=== PATIENT | female | born 1975 | race Asian ===

== ENCOUNTER 2021-10-11 18:08 | Outpatient (REF) | payer MEDICAID, SELFPAY ==
[2021-10-11 16:00] LABS: HCT 36.1 % (36.0-46.0); HGB 12.4 g/dL (11.2-15.7); MCH 32.6 pg (27.0-33.0); MCHC 34.3 % (32.0-36.0); MCV 95 fL (80-95); MPV 10.7 fL (8.0-11.0); Platelet Count 300 10^3/uL (130-400); RDW-SD 38.2 fL; WBC 3.31 10^3/uL (4.4-10.8)
[2021-10-11 16:28] LABS: Hemoglobin A1C 5.5 % (<5.7)
[2021-10-11 16:39] LABS: ALT 29 U/L (14-59); AST 46 U/L (15-37); Alkaline Phosphatase 49 U/L (46-116); Anion Gap 8.1 mmol/L (3-11); BUN 16 mg/dL (7-18); Bilirubin, Total 0.5 mg/dL (0.2-1.0); CO2 25.9 mmol/L (21.0-32.0); CREATININE 0.8 mg/dL (0.55-1.02); Calcium 8.2 mg/dL (8.5-10.1); Calculated LDL 80 mg/dL (<100); Chloride 106 mmol/L (98-107); Cholesterol 160 mg/dL (<200); Glucose 91 mg/dL (74-106); HDL Cholesterol 68 mg/dL (40-60); Potassium 4.3 mmol/L (3.5-5.1); Sodium 140 mmol/L (136-145); TSH 2.18 uIU/mL (0.36-3.74); Total Protein 6.8 g/dL (6.4-8.2); Triglyceride 64 mg/dL (<150)
== END 2021-10-11 18:09 | disposition home or self-care (01) ==
LOC: NCHCN 18:08
PROVIDERS: PCP Internal Medicine; Visit Provider Nurse Practitioner Family
DX: E66.3 Overweight (principal); Z13.1 Encounter for screening for diabetes mellitus; Z13.220 Encounter for screening for lipoid disorders; Z13.29 Encounter for screening for other suspected endocrine disorder; Z00.00 Encounter for general adult medical examination without abnormal findings
CPT/HCPCS: 80053; 80061; 85027; 83036; 84443

== ENCOUNTER 2021-10-18 09:57 | Outpatient (REF) | payer MEDICAID, SELFPAY ==
--- NOTE | 2021-10-18 09:30 | PAPFT_PTH ---
PATIENT: Tasha Fields LOC: [facility]#:[id number] AGE/SX: 46/F ROOM: RE10/18/[address]: Kenia Owens : 1975 BED: DIS: 10/18/2021 SPEC #: [id number] RECD: 10/18/21 18:36 STATUS: ARNOLD REMarcelo #: [id number] DEANDRE: 10/18/21 09:[address]: Kenia Duenas DEPT: [facility] Cytology RECD BY: Luanne Laguna ENTERED: 10/18/21 18:36 SP TYPE: PAPFT OTHR DR: Emeka Griffin Tissues: 1 - CX/ENDOCX FOR PAP SMEARS Procedures: PAP THIN PREP/[facility] Screening HPV DNA PROBE Comments: [id number]
== END 2021-10-18 09:58 | disposition home or self-care (01) ==
LOC: NCHCN 09:57
PROVIDERS: PCP Internal Medicine; Visit Provider Nurse Practitioner Family
DX: Z12.4 Encounter for screening for malignant neoplasm of cervix (principal); Z11.51 Encounter for screening for human papillomavirus (HPV)
CPT/HCPCS: 88142; 87624

== ENCOUNTER 2021-11-29 15:04 | Outpatient (REF) | payer MEDICAID, SELFPAY ==
[2021-11-29 15:48] LABS: HCT 37.5 % (36.0-46.0); HGB 12.9 g/dL (11.2-15.7); MCH 31.9 pg (27.0-33.0); MCHC 34.4 % (32.0-36.0); MCV 93 fL (80-95); MPV 10.8 fL (8.0-11.0); Platelet Count 278 10^3/uL (130-400); RBC 4.04 10^6/uL (3.93-5.22); RDW-SD 37.7 fL; WBC 3.77 10^3/uL (4.4-10.8)
[2021-11-29 16:08] LABS: ALT 40 U/L (14-59); AST 24 U/L (15-37); Albumin 3.8 g/dL (3.4-5.0); Alkaline Phosphatase 39 U/L (46-116); Anion Gap 5.7 mmol/L (3-11); BUN 20 mg/dL (7-18); Bilirubin, Total 0.6 mg/dL (0.2-1.0); CO2 26.3 mmol/L (21.0-32.0); CREATININE 0.7 mg/dL (0.55-1.02); Calcium 8.3 mg/dL (8.5-10.1); Chloride 104 mmol/L (98-107); Glucose 97 mg/dL (74-106); Sodium 136 mmol/L (136-145); Total Protein 7.2 g/dL (6.4-8.2)
[2021-11-29 16:26] LABS: Vitamin D 25 Total 21.9 ng/mL (30-100)
[2021-11-30 10:49] LABS: Parathyroid Hormone,Intact 36 pg/mL (19-88)
== END 2021-11-29 15:05 | disposition home or self-care (01) ==
LOC: NCHCN 15:04
PROVIDERS: PCP Internal Medicine; Visit Provider Nurse Practitioner Family
DX: D72.819 Decreased white blood cell count, unspecified (principal); E83.51 Hypocalcemia
CPT/HCPCS: 80053; 82306; 85027; 83970

== ENCOUNTER 2022-02-26 14:37 | Outpatient (REF) | payer MEDICAID, SELFPAY ==
[2022-02-26 15:11] LABS: HCT 36.7 % (36.0-46.0); HGB 12.4 g/dL (11.2-15.7); MCH 32.1 pg (27.0-33.0); MCHC 33.8 % (32.0-36.0); MCV 95 fL (80-95); Platelet Count 324 10^3/uL (130-400); RBC 3.86 10^6/uL (3.93-5.22); RDW-SD 38.5 fL; WBC 3.46 10^3/uL (4.4-10.8)
[2022-02-26 15:32] LABS: ALT 60 U/L (14-59); AST 40 U/L (15-37); Albumin 3.9 g/dL (3.4-5.0); Alkaline Phosphatase 48 U/L (46-116); Anion Gap 4.5 mmol/L (3-11); BUN 18 mg/dL (7-18); Bilirubin, Total 0.6 mg/dL (0.2-1.0); CO2 28.5 mmol/L (21.0-32.0); CREATININE 0.8 mg/dL (0.55-1.02); Calcium 8.7 mg/dL (8.5-10.1); Chloride 104 mmol/L (98-107); Estimated GFR 92.54 (mL/min/1.73m2); Glucose 96 mg/dL (74-106); Sodium 137 mmol/L (136-145); Total Protein 7.5 g/dL (6.4-8.2)
[2022-02-26 15:45] LABS: Vitamin D 25 Total 47.2 ng/mL (30-100)
== END 2022-02-26 14:38 | disposition home or self-care (01) ==
LOC: NCHCN 14:37
PROVIDERS: PCP Internal Medicine; Visit Provider Nurse Practitioner Family
DX: D72.819 Decreased white blood cell count, unspecified (principal); E83.51 Hypocalcemia; E55.9 Vitamin D deficiency, unspecified
CPT/HCPCS: 80053; 82306; 85027

== ENCOUNTER 2022-03-06 22:31 | Outpatient (REF) | payer MEDICAID, SELFPAY ==
[2022-03-06 21:06] LABS: Abs Immature Grans 0.01 10^3/uL (0.0-0.06); Absolute Basophil Count 0.03 10^3/uL (0.0-0.2); Absolute Eosinophil Count 0.27 10^3/uL (0.0-0.7); Absolute Lymphocyte Count 1.23 10^3/uL (1.2-3.4); Absolute Monocyte Count 0.37 10^3/uL (0.1-0.8); Absolute Neutrophil Count 1.69 10^3/uL (1.2-6.7); Basophils % 0.8; Eosinophils % 7.5; HCT 35.8 % (36.0-46.0); HGB 12.4 g/dL (11.2-15.7); Immature Grans % 0.3; Lymphocytes % 34.2; MCHC 34.6 % (32.0-36.0); MCV 95 fL (80-95); MPV 10.3 fL (8.0-11.0); Monocytes % 10.3; Neutrophils % 46.9; Platelet Count 339 10^3/uL (130-400); RBC 3.76 10^6/uL (3.93-5.22); RDW-SD 38.7 fL
[2022-03-06 21:32] LABS: Ferritin 304 ng/mL (8-252)
[2022-03-06 22:04] LABS: Iron 142 ug/dL (50-170); Total Iron Binding Capacity 255 ug/dL (250-450); Transferrin Sat 56 % (15-50)
[2022-03-08 09:11] LABS: HBs Antibody, Quant >1000.0 mIU/mL (See Note); Hepatitis B Surface Ab Positive (See Note)
[2022-03-08 10:47] LABS: Hepatitis A Antibody IgM Negative (Negative); Hepatitis B Core Antibody Positive (Negative); Hepatitis B surface Ag Negative (Negative); Hepatitis C Ab w Rflx HCV PCR Negative (Negative)
[2022-03-09 16:31] LABS: HBc IgM Ab, S Negative (Negative)
== END 2022-03-06 22:32 | disposition home or self-care (01) ==
LOC: NCHCN 22:31
PROVIDERS: PCP Internal Medicine; Visit Provider Nurse Practitioner Family
DX: R79.89 Other specified abnormal findings of blood chemistry (principal); D72.819 Decreased white blood cell count, unspecified
CPT/HCPCS: 86704; 86706; 86709; 86803; 87340; 82728; 83540; 83550; 85025; 86705

== ENCOUNTER 2022-04-01 22:03 | Outpatient (REF) | payer MEDICAID, SELFPAY ==
[2022-04-01 21:50] LABS: ALT 59 U/L (14-59); AST 31 U/L (15-37); Alkaline Phosphatase 47 U/L (46-116); Bilirubin, Direct 0.2 mg/dL (0.0-0.2); Bilirubin, Total 0.8 mg/dL (0.2-1.0)
[2022-04-03 16:07] LABS: Smooth Muscle Ab Screen Negative (Negative)
[2022-04-03 16:30] LABS: ANA Interpretation Negative (Negative)
[2022-04-08 00:18] LABS: Result Summary NEGATIVE; Specimen WB Whole Blood
== END 2022-04-01 22:04 | disposition home or self-care (01) ==
LOC: NCHCN 22:03
PROVIDERS: PCP Internal Medicine; Visit Provider Nurse Practitioner Family
DX: R79.89 Other specified abnormal findings of blood chemistry (principal)
CPT/HCPCS: 80076; 81256; 86038; 86255

== ENCOUNTER 2022-10-10 09:50 | Outpatient (REF) | payer MEDICAID, SELFPAY ==
[2022-10-10 15:01] LABS: ALT 27 U/L (14-59); AST 21 U/L (15-37); Albumin 3.6 g/dL (3.4-5.0); Alkaline Phosphatase 38 U/L (46-116); Bilirubin, Direct 0.2 mg/dL (0.0-0.2); Bilirubin, Total 0.9 mg/dL (0.2-1.0); Total Protein 6.8 g/dL (6.4-8.2)
== END 2022-10-10 09:51 | disposition home or self-care (01) ==
LOC: NCHCN 09:50
PROVIDERS: PCP Internal Medicine; Visit Provider Nurse Practitioner Family
DX: R79.89 Other specified abnormal findings of blood chemistry (principal)
CPT/HCPCS: 80076

== ENCOUNTER 2023-05-20 12:42 | Outpatient (REF) | payer MEDICAID, SELFPAY ==
[2023-05-20 14:31] LABS: HCT 36.8 % (36.0-46.0); HGB 12.9 g/dL (11.2-15.7); MCH 32.5 pg (27.0-33.0); MCHC 35.1 % (32.0-36.0); MCV 93 fL (80-95); MPV 10.1 fL (8.0-11.0); Platelet Count 322 10^3/uL (130-400); RBC 3.97 10^6/uL (3.93-5.22); RDW-SD 37.6 fL; WBC 3.16 10^3/uL (4.4-10.8)
[2023-05-20 15:06] LABS: ALT 35 U/L (14-59); AST 25 U/L (15-37); Albumin 3.6 g/dL (3.4-5.0); Alkaline Phosphatase 38 U/L (46-116); BUN 18 mg/dL (7-18); Bilirubin, Total 0.7 mg/dL (0.2-1.0); Calcium 8.6 mg/dL (8.5-10.1); Chloride 105 mmol/L (98-107); Glucose 98 mg/dL (74-106); Potassium 3.9 mmol/L (3.5-5.1); Sodium 140 mmol/L (136-145); TSH 1.65 uIU/mL (0.36-3.74); Total Protein 6.9 g/dL (6.4-8.2)
[2023-05-20 15:22] LABS: CREATININE 0.8 mg/dL (0.55-1.02); Estimated GFR 91.97 (mL/min/1.73m2)
[2023-05-20 15:54] LABS: Hemoglobin A1C 5.3 % (<5.7)
[2023-05-20 16:18] LABS: Vitamin D 25 Total 24.9 ng/mL (30-100)
== END 2023-05-20 12:43 | disposition home or self-care (01) ==
LOC: NCHCN 12:42
PROVIDERS: PCP Internal Medicine; Visit Provider Nurse Practitioner Family
DX: D72.819 Decreased white blood cell count, unspecified (principal); E55.9 Vitamin D deficiency, unspecified; R74.01 Elevation of levels of liver transaminase levels; E04.1 Nontoxic single thyroid nodule; R79.89 Other specified abnormal findings of blood chemistry
CPT/HCPCS: 80053; 82306; 85027; 83036; 84443

== ENCOUNTER 2024-05-25 14:11 | Outpatient (REF) | payer MEDICAID, SELFPAY ==
[2024-05-25 15:20] LABS: HCT 36.5 % (36.0-46.0); HGB 12.6 g/dL (11.2-15.7); MCHC 34.5 % (32.0-36.0); MCV 93 fL (80-95); MPV 10.5 fL (8.0-11.0); Platelet Count 340 10^3/uL (130-400); RBC 3.94 10^6/uL (3.93-5.22); RDW-SD 37.8 fL; WBC 3.23 10^3/uL (4.4-10.8)
[2024-05-25 15:37] LABS: Hemoglobin A1C 5.6 % (<5.7)
[2024-05-25 16:05] LABS: ALT 23 U/L (14-59); AST 26 U/L (15-37); Albumin 3.8 g/dL (3.4-5.0); Alkaline Phosphatase 36 U/L (46-116); Anion Gap 5.6 mmol/L (3-11); BUN 16 mg/dL (7-18); Bilirubin, Total 0.77 mg/dL (0.2-1.0); CO2 27.4 mmol/L (21.0-32.0); CREATININE 0.8 mg/dL (0.55-1.02); Calcium 8.7 mg/dL (8.5-10.1); Calculated LDL 97 mg/dL (<100); Chloride 105 mmol/L (98-107); Cholesterol 182 mg/dL (<200); Glucose 92 mg/dL (74-106); HDL Cholesterol 77 mg/dL (40-60); Sodium 138 mmol/L (136-145); TSH 1.69 uIU/mL (0.36-3.74); Total Protein 7.2 g/dL (6.4-8.2); Triglyceride 44 mg/dL (<150); Vitamin D 25 Total 36.1 ng/mL (30-100)
[2024-05-28 13:51] LABS: Helicobacter pylori Ag, Feces Negative (Negative)
== END 2024-05-25 14:12 | disposition home or self-care (01) ==
LOC: NCHCN 14:11
PROVIDERS: PCP Internal Medicine; Visit Provider Nurse Practitioner Family
DX: K21.9 Gastro-esophageal reflux disease without esophagitis (principal); E04.1 Nontoxic single thyroid nodule; R74.01 Elevation of levels of liver transaminase levels; D72.819 Decreased white blood cell count, unspecified; E55.9 Vitamin D deficiency, unspecified; Z13.1 Encounter for screening for diabetes mellitus; Z13.220 Encounter for screening for lipoid disorders
CPT/HCPCS: 80053; 80061; 82306; 85027; 87338; 83036; 84443